=== PATIENT | male | born 1985 | race Caucasian/White ===

== ENCOUNTER 2016-12-15 14:55 | Emergency (ER) | payer OTHER ==
[2016-12-15 15:04] VITALS: BP 133/74
--- NOTE | 2016-12-15 15:08 | UC ---
Back Pain HPI - HPI Summary HPI Summary: 31 year old male presents with complains of lower back pain. - History of Current Complaint Chief Complaint: UCGI Stated Complaint: BACK PAIN Time Seen by Provider: 12/15/16 15:07 Hx Obtained From: Patient Onset/Duration: Sudden Onset Timing: Constant Severity Initially: Moderate Severity Currently: Moderate Pain Scale Used: 0-10 Numeric - 5 - Allergies/Home Medications Allergies/Adverse Reactions: Allergies Allergy/AdvReac Type Severity Reaction Status Date / Time Penicillin G Allergy Unknown Verified 12/15/16 15:05 Reaction Details Penicillins Allergy Unknown Verified 12/15/16 15:05 Reaction Details PMH/Surg Hx/FS Hx/Imm Hx Previously Healthy: Yes - Surgical History Surgical History: Yes Surgery Procedure, Year, and Place: ear drum rupture - Social History Alcohol Use: Occasionally Substance Use Type: None, Marijuana Smoking Status (MU): Light Every Day Tobacco Smoker Review of Systems Constitutional: Negative Skin: Negative Eyes: Negative ENT: Negative Respiratory: Negative Cardiovascular: Negative Gastrointestinal: Negative Genitourinary: Negative Motor: Negative Neurovascular: Negative Musculoskeletal: Myalgia, Other: - lower back pain Neurological: Negative Psychological: Negative All Other Systems Reviewed And Are Negative: Yes Physical Exam Triage Information Reviewed: Yes Vital Signs: Initial Vital Signs Temp 37.3 C 12/15/16 15:01 Pulse 69 12/15/16 15:01 Resp 12 12/15/16 15:01 BP 133/74 12/15/16 15:01 Pulse Ox 99 12/15/16 15:01 Vital Signs Reviewed: Yes Eye Exam: Normal ENT Exam: Normal Dental Exam: Normal Neck exam: Normal Neck: Positive: 1 Respiratory Exam: Normal Cardiovascular Exam: Normal Abdominal Exam: Normal Musculoskeletal: Positive: Other: - SI JOINT PAIN Neurological Exam: Normal Psychological Exam: Normal Skin Exam: Normal Back Pain Course/Dx - Differential Dx/Diagnosis Provider Diagnoses: BILATERAL SI JOINT PAIN Discharge - Discharge Plan Condition: Stable Disposition: HOME Prescriptions: Ibuprofen TAB* [Motrin TAB* 800 MG] 800 mg PO Q6H #30 tab Methocarbamol TAB* [Robaxin 500 MG TAB*] 500 mg PO TID PRN #30 tab PRN Reason: Spasms - Back Patient Education Materials: Muscle Spasm (ED) Forms: *Work Release Referrals: Eliezer Dunlap MD [Primary Care Provider] -
== END 2016-12-15 15:38 | disposition home or self-care (01) ==
LOC: UCEAST 14:55
DX: M53.3 Sacrococcygeal disorders, not elsewhere classified (principal); Z88.0 Allergy status to penicillin
CPT/HCPCS: 99212; G0463

== ENCOUNTER 2017-01-24 10:44 | Emergency (ER) | payer SELFPAY ==
[2017-01-24 11:19] VITALS: BP 152/84
[2017-01-24] MEDS ORDERED: Ketorolac INJ* 60 MG/2 ML VIAL IM ONE (12:23)
[2017-01-24] MEDS ORDERED: Clindamycin CAP* 150 MG PO ONE (12:24)
--- NOTE | 2017-01-24 12:39 | ED ---
Throat Pain/Nasal Congestion - HPI Summary HPI Summary: Patient arrives to ED with CC of pain over left upper and lower molar radiating to the jaw and ear. Denies trismus, drooling or dysphagia. Pain is 10/10, sharp and throbbing. Denies airway compromise or SOB. Denies ear pain, eye pain, blurry vision or double vision. Otherwise healthy. Pain is worse with chewing and cold drinks, better with ibuprofen, but only improves slightly. Patient denies dental care for several years. He has an appt next week with [facility]. Mother is at bedside and is requesting percoset for him. Denies fevers, sweats or chills. - History of Current Complaint Chief Complaint: EDDentalPain Time Seen by Provider: 01/24/17 10:52 Hx Obtained From: Patient Onset/Duration: Sudden Onset Severity: Severe Associated Signs And Symptoms: Negative: Dysphagia, Drooling, Wheezing - Epiglottits Risk Factors Epiglottis Risk Factors: Negative - Allergies/Home Medications Allergies/Adverse Reactions: Allergies Allergy/AdvReac Type Severity Reaction Status Date / Time Penicillin G Allergy Unknown Verified 12/15/16 15:05 Reaction Details Penicillins Allergy Unknown Verified 12/15/16 15:05 Reaction Details PMH/Surg Hx/FS Hx/Imm Hx Previously Healthy: Yes Endocrine/Hematology History: Reports: Hx Thyroid Disease Denies: Hx Diabetes Cardiovascular History: Reports: Hx Hypertension - in family but not him Denies: Hx Pacemaker/ICD Respiratory History: Reports: Hx Asthma - when younger, Other Respiratory Problems/Disorders - trying to quit smoking History: Denies: Hx Renal Disease Sensory History: Denies: Hx Hearing Aid Neurological History: Reports: Other Neuro Impairments/Disorders - sports injuries,back and knees-multiple sclerosis? Psychiatric History: Reports: Hx Panic Disorder - Surgical History Surgery Procedure, Year, and Place: ear drum rupture - Immunization History Hx Pertussis Vaccination: No Immunizations Up to Date: Unable to Obtain/Confirm Infectious Disease History: No Infectious Disease History: Denies: Traveled Outside the [place] in Last 30 Days - Social History Occupation: Unemployed Lives: With Family Alcohol Use: Occasionally Hx Substance Use: Yes Substance Use Type: Reports: Marijuana Hx Tobacco Use: Yes Smoking Status (MU): Light Every Day Tobacco Smoker Review of Systems Constitutional: Negative Negative: Fever, Chills, Fatigue, Skin Diaphoresis Eyes: Negative Positive: Dental Pain Cardiovascular: Negative Respiratory: Negative Genitourinary: Negative Positive: no symptoms reported, see HPI Musculoskeletal: Negative Neurological: Negative All Other Systems Reviewed And Are Negative: Yes Physical Exam Triage Information Reviewed: Yes Vital Signs On Initial Exam: Initial Vitals Temp Pulse Resp BP Pulse Ox 98.9 F 71 20 152/84 97 01/24/17 11:16 01/24/17 11:16 01/24/17 11:16 01/24/17 11:16 01/24/17 11:16 Vital Signs Reviewed: Yes Appearance: Positive: Well-Appearing, Well-Nourished Skin: Positive: Warm, Skin Color Reflects Adequate Perfusion Head/Face: Positive: Normal Head/Face Inspection Eyes: Positive: EOMI, CARLOS, Conjunctiva Clear ENT: Positive: Dental tenderness Dental: Positive: Percussion Tenderness @ - left upper and lower, Gross Decay/ Caries @ - throughout, Dental Fracture @ - bilateral canines Neck: Positive: Supple, No Lymphadenopathy Respiratory/Lung Sounds: Positive: Clear to Auscultation, Breath Sounds Present Cardiovascular: Positive: Pulses are Symmetrical in both Upper and Lower Extremities Musculoskeletal: Positive: Strength/ROM Intact Neurological: Positive: Speech Normal Psychiatric: Positive: Normal AVPU Assessment: Alert - Jung Coma Scale Coma Scale Total: 15 Diagnostics - Vital Signs Vital Signs Temp Pulse Resp BP Pulse Ox 01/24/17 11:16 98.9 F 71 20 152/84 97 - Laboratory Lab Statement: Any lab studies that have been ordered have been reviewed, and results considered in the medical decision making process. EENT Course/Dx - Course Course Of Treatment: No dental abscess or lesions seen over area of concern. Erythema at site of pain. No drainage from area. Several dental caries, cavities, crowding and broken teeth throughout. Pain on palpation over mandible. No TMJ tenderness. No pain with opening and closing mouth. Poor dental hygiene and outpatient dental care. Will treat for possible dental infection/abscess based on symptoms of pain and radiation to jaw and ear. No allergies. Will treat with Clindamycin d/t Penicillin allergy. Patient to follow up immediately with dentist. On discussing toradol medication, mother becomes very angry and states "that won't help him" and is requesting Percoset. I have advised I would like to prescribe Toradol and not go right to an opioid to which she replied she will just bring him back. I have also advised dental pain is rarely 100% pain free and such does not require an opioid such as percoset to be pain free. He is given other comfort measures. - Differential Diagnoses Differential Diagnoses: Dental Abscess, Dental Caries - Diagnoses Provider Diagnoses: Dental caries, Pain, dental Discharge - Discharge Plan Condition: Stable Disposition: HOME Prescriptions: Clindamycin Cap(NF) [Clindamycin Cap 300 mg Cap(NF)] 300 mg PO Q6H #28 cap Ketorolac TAB * [Toradol TAB *] 10 mg PO Q6H #16 tab Patient Education Materials: Gingivitis (ED), Toothache (ED) Referrals: Eliezer Dunlap MD [Primary Care Provider] - Additional Instructions: Follow up with dentist Pain medication: Toradol up to 4 times daily for 4 days Tylenol 650mg on opposite schedule of the pain medication Clindamycin four times daily for 7 days Ambesol, Clove and alcohol will help with pain salt water rinses water pick Dental pain is rarely 100% controlled, please use the above to reduce your discomfort
== END 2017-01-24 12:54 | disposition home or self-care (01) ==
LOC: ED 10:44
DX: K02.9 Dental caries, unspecified (principal); K08.89 Other specified disorders of teeth and supporting structures; J45.909 Unspecified asthma, uncomplicated; Z72.0 Tobacco use; E07.9 Disorder of thyroid, unspecified; I10 Essential (primary) hypertension
CPT/HCPCS: 96372; 99282; A9270-GY; J1885

== ENCOUNTER 2017-09-06 14:15 | Emergency (ER) | payer SELFPAY ==
--- NOTE | 2017-09-06 14:40 | UC ---
Dizzy HPI HPI Summary: This patient is a 32 year old M presenting to [facility] with a chief complaint of dizziness and lightheadedness since 2 days ago. 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 The patient notes that he was drinking water most of the day but he felt like he was getting overheated. The patient also notes several syncopal episodes. The patient reports that he took a cool shower after work but still felt dizzy with a headache. The patient rates the pain 10/10 in severity. Symptoms aggravated by heat. Symptoms alleviated by nothing. Patient reports some mild chest pain, 15-minute onset headache, nausea and decreased appetite 1 day ago that has since resolved. The patient reports hx of headaches but notes that his current symptoms are atypical. The patient reports that he has previously had heat stroke. Patient denies taking any daily medications and notes he took ibuprofen. - History Of Current Complaint Stated Complaint: HEADACHE DIZZY Time Seen by Provider: 09/06/17 14:31 Hx Obtained From: Patient Onset/Duration: Gradual Onset, Lasting Days - 2 days, Still Present Timing: Constant Severity Initially: Moderate Severity Currently: Moderate Pain Intensity: 7 Pain Scale Used: 0-10 Numeric Character: Lightheaded, Dizzy Aggravating Factor(s): Exertion Alleviating Factor(s): Nothing Associated Signs And Symptoms: Positive: Nausea, Chest Pain, Decreased Oral Intake - Allergies/Home Medications Allergies/Adverse Reactions: Allergies Allergy/AdvReac Type Severity Reaction Status Date / Time Penicillins Allergy Rash Verified 09/06/17 14:27 Home Medications: Home Medications Ibuprofen 400 mg PO Q6H PRN 09/06/17 [History Confirmed 09/06/17] PMH/Surg Hx/FS Hx/Imm Hx Endocrine History: Thyroid Disease Respiratory History: Asthma - as a child Psychological History: Other - panic disorder Other Psychological History: . - Surgical History Surgical History: Yes Surgery Procedure, Year, and Place: L ear drum rupture - Family History Known Family History: Positive: Hypertension - Social History Alcohol Use: None Substance Use Type: Marijuana Substance Use Comment - Amount & Last Used: daily Smoking Status (MU): Light Every Day Tobacco Smoker Amount Used/How Often: 6 cigs per day Review of Systems Constitutional: Negative - negative fever Cardiovascular: Chest Pain Gastrointestinal: Nausea Neurological: Headache, Other - dizziness, lightheadedness All Other Systems Reviewed And Are Negative: Yes Physical Exam - Summary Physical Exam Summary: General: well-appearing, no pain distress Skin: warm, color reflects adequate perfusion, dry Head: normal Eyes: EOMI, CARLOS ENT: normal Neck: supple, nontender Respiratory: CTA, breath sounds present Cardiovascular: RRR Abdomen: soft, nontender Bowel: present Musculoskeletal: normal, strength/ROM intact Neurological: sensory/motor intact, A&O x3 Psychological: affect/mood appropriate Triage Information Reviewed: Yes Vital Signs: Initial Vital Signs Temp 98.3 F 09/06/17 14:26 Pulse 87 09/06/17 14:26 Resp 18 09/06/17 14:26 BP 148/77 09/06/17 14:26 Pulse Ox 97 09/06/17 14:26 Vital Signs Reviewed: Yes Diagnostics - EKG Cardiac Rate: NL - at 70 BPM Cardiac Rhythm: Sinus: Normal - NSR, nml ST, no ectopy Ectopy: None ST Segment: Normal Dizzy Course/Dx - Course Course Of Treatment: DISCUSSED EKG AND ORTHOSTATIC VITAL SIGNS WITH THE PATIENT. - Differential Dx/Diagnosis Provider Diagnoses: HEAT EXHAUSTION. DEHYDRATION Discharge - Sign-Out/Discharge Documenting (check all that apply): Patient Departure - Discharge Plan Condition: Stable Disposition: HOME Prescriptions: Ondansetron ODT TAB* [Zofran 4 MG Odt TAB*] 4 mg PO Q6H PRN #10 tab.odt PRN Reason: Nausea Patient Education Materials: Dehydration (ED), Heat Exhaustion (ED) Forms: *Work Release Referrals: Eliezer Dunlap MD [Primary Care Provider] - Additional Instructions: FOLLOW UP WITH YOUR DOCTOR IF NOT COMPLETELY IMPROVED. DRINK PLENTY OF WATER. AVOID GETTING OVERHEATED. GET RECHECKED FOR ANY WORSENING OF YOUR CONDITION OR QUESTIONS OR CONCERNS. - Billing Disposition and Condition Condition: STABLE Disposition: Home
[2017-09-06 15:00] VITALS: BP 122/77
== END 2017-09-06 15:30 | disposition home or self-care (01) ==
LOC: UCEAST 14:15
DX: T67.5XXA Heat exhaustion, unspecified, initial encounter (principal); X30.XXXA Exposure to excessive natural heat, initial encounter; Y93.89 Activity, other specified; Y92.9 Unspecified place or not applicable; Y99.0 Civilian activity done for income or pay; E86.0 Dehydration; R11.0 Nausea; R07.89 Other chest pain; R51 Headache; E07.9 Disorder of thyroid, unspecified; F41.0 Panic disorder [episodic paroxysmal anxiety]; Z88.0 Allergy status to penicillin; Z82.49 Family history of ischemic heart disease and other diseases of the circulatory system; F17.210 Nicotine dependence, cigarettes, uncomplicated
CPT/HCPCS: 93005; 99212; G0463

== ENCOUNTER 2018-08-09 10:32 | Emergency (ER) | payer OTHER ==
--- NOTE | 2018-08-09 10:42 | UC ---
General HPI - HPI Summary HPI Summary: 33 yo male presents with nausea. He tells me that over the last 2-3 months he has been having issues with nausea. He reports that it feels worse after eating and he feels a burning/gurgling in his upper stomach that makes him nauseous. He has vomited due to this in the past, most recently was once yesterday. He has a decreased appetite overall due to this. He also reports that his diet is not the greatest and does not eat many vegetables or a well balanced diet. 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 He tells me today that his nausea seems worse this week starting on 08/06 and is accompanied by some feelings of intermittent lightheadedness. Denies fever, chills, SOB, chest pain, abdominal pain, diarrhea, dysuria. He does smoke daily. He also reports smoking marijuana often as he was diagnosed with a mental illness years ago and this is "the only thing that helps ". Marijuana also helps his nausea. - History of Current Complaint Stated Complaint: NAUSEA FATIGUE Time Seen by Provider: 08/09/18 10:40 Hx Obtained From: Patient Onset/Duration: Gradual Onset Onset Severity: Mild Current Severity: Mild - Allergy/Home Medications Allergies/Adverse Reactions: Allergies Allergy/AdvReac Type Severity Reaction Status Date / Time Penicillins Allergy Rash Verified 08/09/18 10:47 PMH/Surg Hx/FS Hx/Imm Hx Psychological History: Bipolar Disorder - Surgical History Surgical History: Yes Surgery Procedure, Year, and Place: L ear drum rupture - Family History Known Family History: Positive: Hypertension - Social History Lives: With Family Alcohol Use: None Substance Use Type: Marijuana Substance Use Comment - Amount & Last Used: daily Smoking Status (MU): Light Every Day Tobacco Smoker Amount Used/How Often: 6 cigs per day Review of Systems All Other Systems Reviewed And Are Negative: Yes Constitutional: Positive: Negative Skin: Positive: Negative Eyes: Positive: Negative ENT: Positive: Negative Respiratory: Positive: Negative Cardiovascular: Positive: Negative Gastrointestinal: Positive: Vomiting, Nausea Genitourinary: Positive: Negative Neurovascular: Positive: Negative Musculoskeletal: Positive: Negative Neurological: Positive: Negative Psychological: Positive: Negative Physical Exam - Summary Physical Exam Summary: GENERAL: NAD. WDWN. No pain distress. SKIN: No rashes, sores, or open wounds. HEENT: Head: AT/NC Eyes: PERRLA. EOM intact. Conjunctiva clear without inflammation or discharge. Ears: Hearing grossly normal. TMs intact, no bulging, erythema, or edema. Nose: Nasal mucosa pink and moist. NTTP maxillary and frontal sinus. Throat: Posterior oropharynx without exudates, erythema, or tonsillar enlargement. Uvula midline. NECK: Supple. Nontender. No lymphadenopathy. CHEST: CTAB. No r/r/w. No accessory muscle use. Breathing comfortably and in no distress. CV: RRR. Without m/r/g. Pulses intact. Brisk cap refill. ABDOMEN: Soft. NTTP. No distention or guarding. No CVA tenderness. Bowel sounds present. Negative koroma sign. MSK: FROM and 5/5 strength throughout. No edema. NEURO: Alert. PSYCH: Age appropriate behavior. Triage Information Reviewed: Yes Vital Signs: Vital Signs: Temp Pulse Resp BP Pulse Ox 98.6 F 56 18 114/69 97 08/09/18 10:42 08/09/18 10:42 08/09/18 10:42 08/09/18 10:42 08/09/18 10:42 Vital Signs Reviewed: Yes Course/Dx - Course Course Of Treatment: POC glucose: 85 Suspect GERD, but this could also be related to his chronic marijuana use. We discussed, at length, proper balanced diet and trying to refrain from sugary drinks and fried/greasy foods. Will rx for zofran and omperazole. He was provided with information regarding a healthy balanced diet and encouraged to f/u with his PCP for a recheck in 1-2 weeks. - Diagnoses Provider Diagnosis: GERD (gastroesophageal reflux disease), Nausea Discharge - Sign-Out/Discharge Documenting (check all that apply): Patient Departure All imaging exams completed and their final reports reviewed: No Studies - Discharge Plan Condition: Stable Disposition: HOME Prescriptions: Omeprazole 20 mg PO DAILY #30 capsule. Ondansetron ODT TAB* [Zofran 4 MG Odt TAB*] 4 mg PO Q8H PRN #12 tab.odt PRN Reason: Nausea Patient Education Materials: Shopping for a Healthy Diet (ED), Meal Planning with the Plate Method (DC), Gastroesophageal Reflux Disease (DC) Forms: *Work Release Referrals: Eliezer Dunlap MD [Primary Care Provider] - 1 Week Additional Instructions: If you develop a fever, shortness of breath, chest pain, new or worsening symptoms - please call your PCP or go to the ED immediately. I recommend that you schedule an appointment with your primary doctor in 1-2 weeks for a recheck of your symptoms. Drink plenty of water and low-sugar or non-sugary drinks. Eat a healthy balanced diet and try to avoid deep fried and greasy foods. - Billing Disposition and Condition Condition: STABLE Disposition: Home - Attestation Statements Provider Attestation: I was available for consult. This patient was seen by the NIA. The patient was not presented to, seen by, or examined by me. -Korin
[2018-08-09 10:47] VITALS: BP 114/69
== END 2018-08-09 11:12 | disposition home or self-care (01) ==
LOC: UCEAST 10:32
DX: R11.0 Nausea (principal); K21.9 Gastro-esophageal reflux disease without esophagitis; F17.210 Nicotine dependence, cigarettes, uncomplicated; Z88.0 Allergy status to penicillin
CPT/HCPCS: 99212; G0463

== ENCOUNTER 2019-03-26 20:57 | Emergency (ER) | payer OTHER ==
[2019-03-26 21:01] VITALS: BP 117/70
[2019-03-26] MEDS ORDERED: Albuterol HFA INHALER* 8 gm MDI INH ONE (21:57)
[2019-03-26] MEDS ORDERED: DOXYcycline CAP(*) 100 MG PO ONE (21:57)
--- NOTE | 2019-03-26 21:58 | UC ---
Respiratory Complaint HPI - HPI Summary HPI Summary: Be 4-year-old male comes with a chief complaint of cough for 3 weeks. The last 1 week it's gotten worse. He did use some [id number] medicine which did help decrease the cough. He's been bringing up yellow sputum. Does have a history of asthma but does not have an albuterol inhaler. Patient does have some rhinorrhea and does have sinus congestion. - History of Current Complaint Chief Complaint: UCRespiratory Stated Complaint: COUGH Time Seen by Provider: 03/26/19 21:43 Pain Intensity: 7 - Allergies/Home Medications Allergies/Adverse Reactions: Allergies Allergy/AdvReac Type Severity Reaction Status Date / Time Penicillins Allergy Rash Verified 03/26/19 21:02 Home Medications: Home Medications guaiFENesin ER TAB [Mucinex*] 600 mg PO PRN 03/26/19 [History] PMH/Surg Hx/FS Hx/Imm Hx Previously Healthy: Yes Respiratory History: Asthma - Surgical History Surgical History: Yes Surgery Procedure, Year, and Place: L ear drum rupture - Family History Known Family History: Positive: Hypertension - Social History Alcohol Use: None Substance Use Type: Marijuana Substance Use Comment - Amount & Last Used: daily Smoking Status (MU): Current Some Day Smoker Type: Cigarettes Amount Used/How Often: 1/2 ppd Review of Systems All Other Systems Reviewed And Are Negative: Yes Constitutional: Positive: Other - SEE HPI Skin: Positive: Negative Eyes: Positive: Negative ENT: Positive: Nasal Discharge, Sinus Congestion, Sinus Pain/Tenderness Respiratory: Positive: Cough, Other - SEE HPI Cardiovascular: Positive: Negative Gastrointestinal: Positive: Negative Motor: Positive: Negative Neurovascular: Positive: Negative Musculoskeletal: Positive: Negative Neurological: Positive: Negative Psychological: Positive: Negative Is Patient Immunocompromised?: No Physical Exam Triage Information Reviewed: Yes Appearance: No Pain Distress, Well-Nourished, Ill-Appearing - MILD Vital Signs: Initial Vital Signs Temp 97.7 F 03/26/19 20:58 Pulse 76 03/26/19 20:58 Resp 20 03/26/19 20:58 BP 117/70 03/26/19 20:58 Pulse Ox 97 03/26/19 20:58 Vital Signs Reviewed: Yes Eye Exam: Normal Eyes: Positive: Conjunctiva Clear ENT: Positive: Pharyngeal erythema, Nasal congestion, Nasal drainage, TMs normal Neck: Positive: Supple Respiratory: Positive: No respiratory distress, Rhonchi Cardiovascular: Positive: RRR Musculoskeletal: Positive: Strength Intact, ROM Intact Neurological: Positive: Alert, Muscle Tone Normal Psychological: Positive: Normal Response To Family, Age Appropriate Behavior Skin Exam: Normal Respiratory Course/Dx - Differential Dx/Diagnosis Provider Diagnosis: Bronchitis with bronchospasm Discharge ED - Sign-Out/Discharge Documenting (check all that apply): Patient Departure All imaging exams completed and their final reports reviewed: No Studies - Discharge Plan Condition: Stable Disposition: HOME Prescriptions: DOXYcycline CAP(*) [DOXYcycline 100MG CAP(*)] 100 mg PO BID #19 cap Patient Education Materials: Acute Bronchitis (ED), Bronchospasm (ED) Forms: *Work Release Referrals: Eliezer Dunlap MD [Primary Care Provider] - Additional Instructions: FOLLOW UP WITH YOUR DOCTOR IF NOT COMPLETELY IMPROVED. GET REEVALUATED SOONER IF NOT IMPROVED OR WORSE OR ANY QUESTIONS OR CONCERNS. - Billing Disposition and Condition Condition: STABLE Disposition: Home
== END 2019-03-26 22:15 | disposition home or self-care (01) ==
LOC: UCEAST 20:57
DX: J39.2 Other diseases of pharynx (principal); J45.909 Unspecified asthma, uncomplicated; R09.81 Nasal congestion; R09.82 Postnasal drip; F17.210 Nicotine dependence, cigarettes, uncomplicated
CPT/HCPCS: 99212; A9270-GY; G0463